=== PATIENT | female | born 1970 | race Caucasian/White ===

== ENCOUNTER → 2016-10-22 | Outpatient (CLI) | payer BC ==
--- NOTE | 2016-10-25 13:04 | MAMMOGRAPHY REPORT ---
BILATERAL DIGITAL SCREENING MAMMOGRAM WITH CAD: 10/22/2016 TECHNIQUE: Current study was also evaluated with a Computer Aided Detection (CAD) system. Bilatera l CC and MLO views including implant displaced views were obtained. COMPARISON: Comparison is made to exams dated: 10/09/2015 ultrasound, 04/15/2015 ultrasound, 04/15/20 15 mammogram - [facility], and 08/05/2012 mammogram. BREAST COMPOSITION: The tissue of both breasts is heterogeneously dense, which may obscure small ma sses. FINDINGS: There are 2 possible adjacent masses posterior to the right nipple on the implant displace d right cc view only, each measuring approximately 11 mm. Additionally, there is also a probable 12 mm oval mass seen within the right lateral breast on the cc view only. Recommend spot compression tomosynthesis views and possible breast ultrasound for further evaluation. These may represent cyst s. The remainder of both breasts are stable compared to prior exams, without suspicious masses, calcifi cations, or areas of architectural distortion noted. Bilateral subpectoral silicone implants are st able in appearance. IMPRESSION: ACR BI-RADS CATEGORY 0: INCOMPLETE EVALUATION: NEED ADDITIONAL IMAGING EVALUATION Possible right breast masses, for which additional imaging evaluation is recommended. The patient w ill be called to schedule an appointment. Approximately 10% of breast cancers are not detected with mammography. A negative mammographic repor t should not delay biopsy if a clinically suggestive mass is present. Mag Ferrell M.D. /:10/22/2016 16:51:33 Pharmacist Assistant: Odalys MAURER(Sohan)(Kit), [facility] letter sent: Addl Imaging 0 BI-RADS Code: ACR BI-RADS Category 0: Incomplete Evaluation: Need Additional Imaging Evaluation
== END | disposition home or self-care (01) ==
LOC: C.MAMM 07:57
PROVIDERS: ATTEND Physician Assistant
DX: Z12.31 Encounter for screening mammogram for malignant neoplasm of breast (principal); R92.8 Other abnormal and inconclusive findings on diagnostic imaging of breast; Z98.82 Breast implant status

== ENCOUNTER → 2016-11-04 | Outpatient (CLI) | payer BC ==
--- NOTE | 2016-11-04 16:18 | MAMMOGRAPHY REPORT ---
UNILATERAL RIGHT DIGITAL DIAGNOSTIC MAMMOGRAM TOMOSYNTHESIS AND TARGETED RIGHT ULTRASOUND: 11/04/2016 CLINICAL HISTORY: 46-year-old woman with a history of bilateral silicone implants called back from sc reening mammography for possible masses within the right breast. TECHNIQUE: Spot compression tomosynthesis right CC and MLO implant displaced views were obtained. COMPARISON: Comparison is made to exams dated: 10/22/2016 mammogram, 10/09/2015 ultrasound, 04/15/2015 ultrasound, 04/15/2015 mammogram - [facility], and 08/05/2012 mammogram. BREAST COMPOSITION: The tissue of the right breast is extremely dense, which lowers the sensitivity of mammography. FINDINGS: Spot compression tomosynthesis views of the right breast demonstrate persistence of multipl e partially circumscribed and obscured masses along the posterior nipple line in the lateral aspect o f the right breast. There are a few scattered benign-appearing microcalcifications. No focal area o f architectural distortion is identified. Further evaluation with ultrasound was performed. Targeted ultrasound was performed throughout the right breast. In the 9:00 axis, 7 cm from the nippl e, there are 2 adjacent circumscribed hypoechoic cystic-appearing masses. The smaller measures 2.8 mm in maximum dimension. The larger measures 6.9 x 2.8 x 9.5 mm. These likely correlate with the asym metry seen in the lateral breast. There are several larger anechoic benign simple cysts in the 11:00 to 12:00 right breast, 1-2 cm from the nipple. The first cyst located 2 cm from the nipple measures 9.4 x 5.5 x 1.2 mm, and the second slightly larger cyst 1 cm from the nipple measures 13.5 x 6.1 x 8 .6 mm. Smaller anechoic cysts are seen in the 11:00 right breast, 4 cm from the nipple. In the 1:00 right breast, 2 cm from the nipple, there is a circumscribed parallel hypoechoic solid versus cystic mass that has decreased in size comparing to a previous ultrasound performed 04/15/2015 at which zander e it measured 6.5 x 4.8 mm (previously labeled 2:00 axis). These findings are consistent with benign fibrocystic changes. There is no sonographic evidence of malignancy within the right breast. Recom mend follow-up at time of next annual screening mammogram. IMPRESSION: ACR BI-RADS CATEGORY 2: BENIGN, TARGETED ULTRASOUND ACR BI-RADS CATEGORY 2: BENIGN Multiple scattered anechoic and hypoechoic cysts are seen in the right breast that correlate with the mammographic masses. These findings are benign, compatible with fibrocystic changes. Recommend fol low-up at time of next annual screening mammogram. These results and recommendations were discussed with the patient at the time of the exam. Approximately 10% of breast cancers are not detected with mammography. A negative mammographic report should not delay biopsy if a clinically suggestive mass is present. Sondra Lilly M.D. ay/:11/04/2016 15:33:16 Sourcing Engineer: Belgica MIRANDA)(Kit), [facility] letter sent: Normal 1/2 BI-RADS Code: ACR BI-RADS Category 2: Benign Ultrasound BI-RADS: ACR BI-RADS Category 2: Benign
== END | disposition home or self-care (01) ==
LOC: C.MAMM 14:01
PROVIDERS: ATTEND Physician Assistant
DX: N63 Unspecified lump in breast (principal)